=== PATIENT | male | born 1990 | race American Indian/Alaskan Native ===

== ENCOUNTER 2019-03-25 22:57 | Emergency (ER) | payer OTHER ==
[2019-03-25 23:11] VITALS: BP 140/78
[2019-03-25] MEDS ORDERED: DUONEB *Not for PRN Use IH ONE (23:12)
--- NOTE | 2019-03-26 00:39 | Emergency Department Report ---
ED Asthma HPI - General Chief Complaint: Adult Asthma Stated Complaint: CHEST PAIN/PRERNA Time Seen by Provider: 03/26/19 00:35 Source: patient Mode of arrival: Ambulatory Limitations: No Limitations - History of Present Illness Initial Comments: h/o asthma, started to have wheezing today, ran out of inhalers. no fever, chills or night sweats. Complaint: "asthma attack" Onset/Timin -: Gradual, days(s) Asthma History: childhood onset Severity: mild Context: none known Associated Symptoms: none - Related Data Current Asthma Therapy: inhaled bronchodilator Allergies Allergy/AdvReac Type Severity Reaction Status Date / Time cat dander Allergy Unknown Verified 03/25/19 23:12 dog dander Allergy Unknown Verified 03/25/19 23:12 ED Review of Systems ROS: Stated complaint: CHEST PAIN/PRERNA Other details as noted in HPI Comment: All other systems reviewed and negative Respiratory: cough, wheezing Cardiovascular: denies: chest pain, palpitations, dyspnea on exertion Gastrointestinal: vomiting. denies: nausea ED Past Medical Hx - Past Medical History Previous Medical History?: Yes Hx Asthma: Yes - Surgical History Past Surgical History?: No - Social History Smoking Status: Current Every Day Smoker Substance Use Type: None ED Physical Exam - General Limitations: No Limitations General appearance: alert, in no apparent distress - Head Head exam: Present: atraumatic, normocephalic - Eye Eye exam: Present: normal appearance, PERRL, EOMI Pupils: Present: normal accommodation - ENT ENT exam: Present: normal exam, normal orophraynx - Neck Neck exam: Present: normal inspection - Respiratory Respiratory exam: Present: wheezes (mild exp) - Cardiovascular Cardiovascular Exam: Present: regular rate - GI/Abdominal GI/Abdominal exam: Present: soft, normal bowel sounds - Extremities Exam Extremities exam: Present: normal inspection, full ROM ED Course Vital Signs 03/25/19 03/26/19 23:07 00:07 Temperature 97.8 F Pulse Rate 71 Pulse Rate [ 78 Bilateral Throughout] Respiratory 20 Rate Respiratory 16 Rate [Bilateral Throughout] Blood Pressure 140/78 O2 Sat by Pulse 100 Oximetry ED Medical Decision Making - Medical Decision Making breathing txt given in er, wheezing resolves, d/c home with inh rx. steroids. - Differential Diagnosis bronchitis, asthma, pna Critical care attestation.: If time is entered above; I have spent that time in minutes in the direct care of this critically ill patient, excluding procedure time. ED Disposition Clinical Impression: Asthma exacerbation, mild Disposition: DC-01 TO HOME OR SELFCARE Is pt being admited?: No Does the pt Need Aspirin: No Condition: Stable Referrals: OSEI DE LA ROSA MD [Primary Care Provider] - 3-5 Days
== END 2019-03-26 00:51 | disposition home or self-care (01) ==
LOC: ED 22:57
DX: J45.901 Unspecified asthma with (acute) exacerbation (principal); F17.200 Nicotine dependence, unspecified, uncomplicated
CPT/HCPCS: 93005; 93010; 94640

== ENCOUNTER 2021-09-17 07:10 | Emergency (ER) | payer BC ==
[2021-09-17 07:38] VITALS: BP 127/81
[2021-09-17] MEDS ORDERED: ACETAMINOPHEN 325 MG TAB PO ONE (08:49)
[2021-09-17] MEDS ORDERED: IBUPROFEN 600 MG TAB PO ONE (08:49)
--- NOTE | 2021-09-17 08:49 | Emergency Department Report ---
- General Chief Complaint: Pain General Stated Complaint: COVID exposure Time Seen by Provider: 09/17/21 08:12 Source: patient Mode of arrival: Ambulatory Limitations: No Limitations - History of Present Illness Initial Comments: 31-year-old male who reports a remote history of pneumonia over 20 years ago but no other significant past medical history presents to the ER today with complaints of being exposed to the COVID-19. 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 He states that he started with symptoms yesterday. He describes generalized body aches, sore throat, headache, chills, intermittent diaphoresis, mild cough, but he reports no fever at home, no chest pain, shortness of breath, no GI or symptoms. He states that he did not get a COVID-19 vaccine or flu vaccine. He denies illicit drug use or tobacco use. He states that he is a social drinker. MD Complaint: cough, sore throat, nasal congestion, other (headache, diaphoresis) -: days(s) (1) - Related Data Previous Rx's Medication Instructions Recorded Last Taken Type Albuterol Sulfate [Proventil Hfa] 1 inch IH Q8HR PRN #1 hfa.aer.ad 03/26/19 Unknown Rx Prednisone [predniSONE 5 mg (6-Day 5 mg PO .TAPER #1 tab.ds.pk 03/26/19 Unknown Rx Pack, 21 Tabs)] Ibuprofen [Motrin] 600 mg PO Q8H PRN #30 tablet 09/17/21 Unknown Rx Allergies Allergy/AdvReac Type Severity Reaction Status Date / Time cat dander Allergy Unknown Verified 03/25/19 23:12 dog dander Allergy Unknown Verified 03/25/19 23:12 ED Review of Systems ROS: Stated complaint: COVID exposure Other details as noted in HPI Comment: All other systems reviewed and negative Constitutional: denies: chills, fever Eyes: denies: eye pain, eye discharge, vision change ENT: throat pain Respiratory: cough. denies: shortness of breath, SOB with exertion, SOB at rest, wheezing Cardiovascular: denies: chest pain, palpitations, dyspnea on exertion, edema, syncope, paroxysmal nocturnal dyspnea Gastrointestinal: denies: abdominal pain, nausea, vomiting, diarrhea, constipation, hematemesis, hematochezia Genitourinary: denies: urgency, dysuria, frequency, hematuria, discharge, testicular pain, testicular mass Musculoskeletal: myalgia. denies: back pain, joint swelling, arthralgia Skin: denies: rash, lesions, change in color, change in hair/nails, pruritus Neurological: denies: headache, weakness, numbness, paresthesias, confusion, abnormal gait, vertigo Psychiatric: denies: anxiety, depression, auditory hallucinations, visual hallucinations, homicidal thoughts, suicidal thoughts ED Past Medical Hx - Past Medical History Hx Asthma: Yes - Social History Smoking Status: Current Every Day Smoker Substance Use Type: None - Medications Home Medications: Home Medications Medication Instructions Recorded Confirmed Last Taken Type Albuterol Sulfate [Proventil Hfa] 1 inch IH Q8HR PRN #1 hfa.aer.ad 03/26/19 Unknown Rx Prednisone [predniSONE 5 mg (6-Day 5 mg PO .TAPER #1 tab.ds.pk 03/26/19 Unknown Rx Pack, 21 Tabs)] Ibuprofen [Motrin] 600 mg PO Q8H PRN #30 tablet 09/17/21 Unknown Rx ED Physical Exam - General Limitations: No Limitations General appearance: alert, in no apparent distress - Head Head exam: Present: atraumatic, normocephalic, normal inspection - Eye Eye exam: Present: normal appearance, PERRL, EOMI Pupils: Present: normal accommodation - ENT ENT exam: Present: normal exam, mucous membranes moist - Neck Neck exam: Present: normal inspection, tenderness, full ROM. Absent: meningismus - Respiratory Respiratory exam: Present: normal lung sounds bilaterally. Absent: respiratory distress, wheezes, rales, rhonchi - Cardiovascular Cardiovascular Exam: Present: regular rate, normal rhythm, normal heart sounds - GI/Abdominal GI/Abdominal exam: Present: soft. Absent: distended, tenderness, guarding, rebound - Neurological Exam Neurological exam: Present: alert, oriented X3, CN II-XII intact, normal gait - Psychiatric Psychiatric exam: Present: normal affect, normal mood - Skin Skin exam: Present: intact ED Course Vital Signs 09/17/21 07:34 Temperature 100.5 F H Pulse Rate 87 Respiratory 16 Rate Blood Pressure 127/81 O2 Sat by Pulse 98 Oximetry ED Medical Decision Making - Medical Decision Making 31-year-old male who reports a remote history of pneumonia over 20 years ago but no other significant past medical history presents to the ER today with complaints of being exposed to the COVID-19. 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 He states that he started with symptoms yesterday. He describes generalized body aches, sore throat, headache, chills, intermittent diaphoresis, mild cough, but he reports no fever at home, no chest pain, shortness of breath, no GI or symptoms. He states that he did not get a COVID-19 vaccine or flu vaccine. He denies illicit drug use or tobacco use. He states that he is a social drinker. [id number]: Patient overall is not toxic, is not significantly ill-appearing, he is not in any significant pain or respiratory distress, he appears well-hydrated, he is neurologically intact with a normal gait; his chest is clear to auscultation. He has no meningeal signs on exam. Abdomen soft and nontender. Vital signs reviewed, he did have a low-grade temp of 100.5 but remaining vital signs are stable including the fact that he is not tachycardic or hypoxic. His temperature is likely related to his viral illness, possibly Covid. Patient will be given a dose of Tylenol and ibuprofen here for his fever. Informed patient that states that he did home he should get a COVID-19 test from either a local urgent care or pharmacy. In the meantime treatment will be geared towards his symptoms, and recommended [id number] medications including T ylenol or ibuprofen for fever pain. Patient instructed that he will need to quarantine for 5 days if he is positive. Patient expressed understanding of all instructions and agree with plan. Patient stable at time of discharge. Critical care attestation.: If time is entered above; I have spent that time in minutes in the direct care of this critically ill patient, excluding procedure time. ED Disposition Clinical Impression: Viral illness, Exposure to COVID-19 virus Disposition: HOME / SELF CARE / HOMELESS Is pt being admited?: No Does the pt Need Aspirin: No Condition: Stable Instructions: Viral Illness, Adult, Prevent the Spread of COVID-19 if You Are Sick - [facility] Additional Instructions: I do recommend that she get a COVID-19 test from either a local urgent care or pharmacy when she leaves here today. I do recommend that she get a thermometer to continue monitoring her temperature, if you do have fever take Tylenol and/or ibuprofen (the one prescribed). You can also take Tylenol and alternate with ibuprofen for any pain. Recommend I drink lots of fluids. Take a multivitamin containing vitamin C, zinc and vitamin D to help boost your immune system. If your COVID-19 test is positive you will need to quarantine at home for 5 days. Return to the ER if at any point your symptoms worsens in any way. Prescriptions: Ibuprofen [Motrin] 600 mg PO Q8H PRN #30 tablet PRN Reason: Pain Referrals: [facility] [Provider Group] - 3-5 Days [facility] [Provider Group] - 3-5 Days Time of Disposition: 08:49
== END 2021-09-17 09:35 | disposition home or self-care (01) ==
LOC: ED 07:10
DX: B34.9 Viral infection, unspecified (principal); Z20.822 Contact with and (suspected) exposure to COVID-19; J45.909 Unspecified asthma, uncomplicated; F17.200 Nicotine dependence, unspecified, uncomplicated; Z91.09 Other allergy status, other than to drugs and biological substances; Z79.899 Other long term (current) drug therapy
CPT/HCPCS: 99282